=== PATIENT | male | born 1990 | race Caucasian/White ===

== ENCOUNTER 2018-06-11 11:56 | Outpatient (CLI) | payer OTHER, SELFPAY ==
--- NOTE | 2018-06-11 11:47 | DI.RAD_ITS ---
SYMPTOM/DIAGNOSIS: PLEURITIS, RT CHEST PAIN, R07.11 PA AND LATERAL CHEST: The heart is normal in size. The lungs are clear. The mediastinal structures and pleura appear intact. CONCLUSION: Normal chest.
[2018-06-11 12:28] LABS: Abs Immature Grans 0.02 k/cumm (0.0-0.09); Absolute Eosinophil Count 0.06 k/cumm (0.0-0.7); Absolute Lymphocyte Count 2.07 k/cumm (1.2-3.4); Absolute Monocyte Count 0.64 k/cumm (0.11-0.7); Absolute Neutrophil Count 5.43 k/cumm (1.2-6.7); Eosinophils % 0.7; HCT 44.3 % (40.0-50.0); HGB 14.9 g/dL (13.5-17.5); Immature Grans % 0.2; Lymphocytes % 25.2; Mean Corp. HGB Concentration 33.6 g/dL (32.0-36.0); Mean Corpuscular Hemoglobin 33.3 pg (27.0-33.0); Mean Corpuscular Volume 98.9 fL (80-95); Mean Platelet Volume 10.3 fL (8.0-11.0); Monocytes % 7.8; Neutrophils % 66.1; Platelet Count 217 x1000/uL (130-400); RBC 4.48 m/cumm (4.50-6.00); RBC Distribution Width 12.3 % (11.8-14.1); White Blood Cell Count 8.22 k/cumm (4.4-10.8)
[2018-06-11 13:06] LABS: D-Dimer 400 ng/mlFEU (<500)
[2018-06-11 13:36] LABS: ALT 25 U/L (12-78); AST 19 U/L (15-37); Alkaline Phosphatase 93 U/L (46-116); Anion Gap 9.6 mmol/L (3-11); BUN 13 mg/dL (7-18); Bilirubin, Total 1.2 mg/dL (0.2-1.0); CO2 29.4 mmol/L (21.0-32.0); CREATININE 0.83 mg/dL (0.70-1.30); Calcium 9.8 mg/dL (8.5-10.1); Chloride 100 mmol/L (98-107); Glucose 85 mg/dL (70-100); Potassium 4.6 mmol/L (3.5-5.1); Sodium 139 mmol/L (136-145); Total Protein 7.3 g/dL (6.4-8.2)
== END 2018-06-11 12:16 ==
PROVIDERS: PCP Internal Medicine; Visit Provider Internal Medicine
DX: R06.02 Shortness of breath (principal); R07.89 Other chest pain; R09.1 Pleurisy
CPT/HCPCS: 36415; 80053; 71046; 85025; 85379

== ENCOUNTER 2019-01-19 15:17 | Outpatient (CLI) | payer OTHER, SELFPAY ==
[2019-01-21 10:51] LABS: Lyme Ab w Rflx to Lyme Confirm Negative
== END 2019-01-19 15:37 ==
PROVIDERS: PCP Internal Medicine; Visit Provider Family Medicine
DX: W57.XXXA Bitten or stung by nonvenomous insect and other nonvenomous arthropods, initial encounter (principal); T14.8XXA Other injury of unspecified body region, initial encounter
CPT/HCPCS: 36415; 86618

== ENCOUNTER 2020-09-05 11:59 | Outpatient (CLI) | payer OTHER, SELFPAY ==
--- NOTE | 2020-09-05 11:45 | DI.RAD_ITS ---
EXAM: XR FOOT LT COMPLETE CLINICAL HISTORY: 100 lb slab fell on foot just prox to 1-5 MTP jts M79.672 PAIN LT FOOT. TECHNIQUE: 2D digital imaging was performed. COMPARISON: No exams were available for comparison FINDINGS: BONES: No acute fracture is present. No bony destructive lesion is seen. JOINTS: No dislocation present. SOFT TISSUE: Normal. IMPRESSION: Unremarkable radiographs of the left foot. DATA REPOSITORY: RADIATION DOSE DELIVERED:
== END 2020-09-05 12:19 ==
PROVIDERS: PCP Physician Assistant; Visit Provider Nurse Practitioner Family
DX: M79.672 Pain in left foot (principal)
CPT/HCPCS: 73630

== ENCOUNTER 2021-01-29 16:37 | Outpatient (CLI) | payer OTHER, SELFPAY ==
--- NOTE | 2021-01-29 13:45 | DI.RAD_ITS ---
Exam(s) XR SHOULDER LT COMPLETE 2+V EXAM: XR SHOULDER LT COMPLETE 2+V CLINICAL HISTORY: Lt shoulder pain, M25.512, s/p fall. TECHNIQUE: 2D digital imaging was performed. COMPARISON: No exams were available for comparison FINDINGS: There is no evidence of acute fracture or dislocation or abnormal soft tissue calcifications. The hu meral head is riding slightly high in the glenoid fossa possibly significant. AC joint appears unrem arkable. No osseous lesions. IMPRESSION: No fractures but slight upriding of the humeral head within the glenoid fossa. This may be indirect evidence of rotator cuff injury. DATA REPOSITORY: RADIATION DOSE DELIVERED:
--- NOTE | 2021-01-29 13:45 | DI.RAD_ITS ---
Exam(s) XR CLAVICLE LT EXAM: XR CLAVICLE LT CLINICAL HISTORY: left clavicle pain s/p fall. TECHNIQUE: 2D digital imaging was performed. COMPARISON: No exams were available for comparison FINDINGS: There is no evidence of left clavicle fracture nor diastasis of the AC joint. IMPRESSION: No clavicle fracture seen. DATA REPOSITORY: RADIATION DOSE DELIVERED:
== END 2021-01-29 16:57 ==
PROVIDERS: PCP Physician Assistant; Visit Provider Nurse Practitioner Family
DX: M25.512 Pain in left shoulder (principal)
CPT/HCPCS: 73000; 73030

== ENCOUNTER 2021-04-19 16:12 | Outpatient (REF) | payer OTHER, SELFPAY ==
[2021-04-19 15:36] LABS: ALT 38 U/L (16-63); AST 24 U/L (15-37); Albumin 4.2 g/dL (3.4-5.0); Alkaline Phosphatase 94 U/L (46-116); Anion Gap 12.6 mmol/L (3-11); BUN 16 mg/dL (7-18); Bilirubin, Total 0.5 mg/dL (0.2-1.0); CO2 25.4 mmol/L (21.0-32.0); CREATININE 0.9 mg/dL (0.70-1.30); Calcium 9.1 mg/dL (8.5-10.1); Calculated LDL 128 mg/dL (<100); Chloride 106 mmol/L (98-107); Cholesterol 231 mg/dL (<200); Glucose 91 mg/dL (74-106); HDL Cholesterol 62 mg/dL (40-60); Potassium 4.2 mmol/L (3.5-5.1); Sodium 144 mmol/L (136-145); Total Protein 7.3 g/dL (6.4-8.2); Triglyceride 206 mg/dL (<150)
[2021-04-19 15:50] LABS: Hemoglobin A1C 5.3 % (<5.7)
== END 2021-04-19 16:13 | disposition home or self-care (01) ==
LOC: LBN 16:12
PROVIDERS: PCP Nurse Practitioner Family; Visit Provider Nurse Practitioner Family
DX: F10.20 Alcohol dependence, uncomplicated (principal); Z13.220 Encounter for screening for lipoid disorders; Z13.1 Encounter for screening for diabetes mellitus
CPT/HCPCS: 80053; 80061; 83036

== ENCOUNTER 2021-06-24 21:27 | Emergency (ER) | payer SELFPAY ==
--- NOTE | 2021-06-24 21:30 | DI.RAD_ITS ---
Exam(s) XR ANKLE LT COMPLETE EXAM: XR ANKLE LT COMPLETE CLINICAL HISTORY: left lateral ankle pain/swelling TECHNIQUE: 2D digital imaging was performed of the left ankle. Three images were obtained. AP, lat eral and oblique views were obtained. COMPARISON: No exams were available for comparison FINDINGS: BONES: No acute fracture is present. No bony destructive lesion is seen. There is a small enthesophyt e at the Achilles insertion site. There does appear to be a tiny calcaneal spur. JOINTS:The ankle mortise is normally aligned. SOFT TISSUE: Mild soft tissue swelling anterior to the ankle. IMPRESSION: No acute fracture or dislocation. DATA REPOSITORY: RADIATION DOSE DELIVERED:
[2021-06-24 21:35] VITALS: BP 144/94; PULSE 90; RESP 17; TEMP 36.6; O2SAT 98
--- NOTE | 2021-06-24 21:35 | W.ED.GENAD ---
Discharge Plan Disposition Patient Disposition: HOME Condition: Good Discharge Details Clinical Impression: Left ankle sprain Primary Care Provider: Axel Ku ED Provider: Johann Lackey Home Meds and New Rx's Prescriptions: Continued ibuprofen 600 mg tablet 600 mg PO QID Qty: 40 RF: 0 naproxen sodium [Aleve] 220 MG capsule 220 mg PO BID PRNRF: 0 Discharge Instructions Instructions: Ankle Sprain (ED) Additional Instructions: Your x-ray results are negative for fracture. You have a notable sprain in the area. This will take a few weeks to potentially a few months to heal. Please take 1000 mg of Tylenol and 800 mg of ibuprofen every 6 hours as needed for pain. These are the maximum doses. Please keep ice on the ankle, will keep it Leonardo wrap at all times to diminish the swelling. Please use the crutches and ankle brace as needed. I would recommend nonweightbearing on your ankle for the next 3 to 5 days, with a gradual transition to use of the boot and weightbearing over the next 1 to 2 weeks as tolerated. If you notice any worsening of your symptoms, or any new symptoms such as vomiting, diarrhea, fever, chills, shortness of breath, chest pain, numbness, weakness, or fainting , please return immediately to the emergency department for reevaluation. Please follow up with your primary care provider as soon as possible for reassessment and reevaluation. As always, it was a pleasure participating in your medical care today. Referrals: Axel Ku, ECONOMIC DEVELOPMENT COORDINATOR [Primary Care Provider] - Medical Decision Making 31-year-old male no significant past medical history presents for left ankle pain. He was playing hockey when a stick got stuck between his legs, and his left leg/ankle pushed rapidly against the hockey-stick, and he had immediate pain. He has not been able to bend it or move it since it occurred. It occurred within the last few hours. Pain is on the lateral aspect of the left ankle. He denies any pain in the knee, head chest abdomen or pelvis. He denies any other injuries. He denies any numbness or tingling. He did take 600 mg of ibuprofen prior to arrival. Exam demonstrates swelling and tenderness over the lateral malleolus. Movements are intact, strength is intact. Suspect anterior talofibular ligament tear and or mild fracture of the distal fibula. We will get x-rays, give 1 g of Tylenol, apply ice, monitor closely and reassess. 9:59 PM X-ray results are negative per me read. No evidence of acute fracture. Patient will be discharged with Leonardo wrap, walking boot, and crutches. Recommend Tylenol Motrin ice at home. Discussed red flags which to return. Patient does not want a work note at this time. Patient has declined any narcotic pain medicines. I have extensively reviewed the treatment plan and discharge instructions with the patient. I have addressed all patient concerns at this time. The patient was made aware of what symptoms to monitor for that would warrant a return to the emergency department. Discussed the plan with the patient, they demonstrate verbal understanding and agreement with our assessment and plan at this time. The documentation in this chart was dictated using [employer] dictation software. Please excuse any dictation errors. FINDINGS: Bones/joints: No acute fracture or dislocation. Minimal calcaneal spur Soft tissues: Mild swelling anteriorly. IMPRESSION: No acute fracture noted Thank you for allowing us to participate in the care of your patient. Dictated and Authenticated by: Zaheer Huang MD 06/24/2021 9:55 PM Eastern Time ([place] & [place]) HPI General Date/Time Provider Initiated Documentation: 06/24/21 21:30. HPI Narrative: 31-year-old male no significant past medical history presents for left ankle pain. He was playing hockey when a stick got stuck between his legs, and his left leg/ankle pushed rapidly against the hockey-stick, and he had immediate pain. He has not been able to bend it or move it since it occurred. It occurred within the last few hours. Pain is on the lateral aspect of the left ankle. He denies any pain in the knee, head chest abdomen or pelvis. He denies any other injuries. He denies any numbness or tingling. He did take 600 mg of ibuprofen prior to arrival. Related Data Home Medications Medication Instructions Recorded Confirmed naproxen sodium [Aleve] 220 mg PO BID PRN 03/20/16 04/19/21 ibuprofen 600 mg tablet 600 mg PO QID #40 tab-cap 01/19/19 06/24/21 Allergies Allergy/AdvReac Type Severity Reaction Status Date / Time peanut AdvReac Severe GI UPSET Verified 04/19/21 08:01 Review of Systems All systems reviewed & are unremarkable except as noted in HPI and below PFSH Medical History Aortic root dilatation (10/26/12) DR. WOODARD History of back injury History of concussion History of head injury Palpitations (11/03/12) DR. WOODARD; HOLTER WITH SINGLE PAC/CARDIOLOGY CONSULT Family History Family History Diabetes Essential hypertension Myocardial infarction Social History Smoking/Tobacco Use Status: Current every day Smoking risk assessment performed?: Yes Drug use: Daily Substance use type: does not use Current gender identity: male Do you feel safe at home: Yes Do you feel safe in your relationship?: Yes Exam Narrative Exam Narrative: 1.Const: Well-nourished, Well-developed, appearing stated age 2.Eyes: PERRL, no conjunctival injection, and symmetrical lids. 3.ENT: Atraumatic external nose and ears. Moist MM. Neck: Symmetric, trachea midline, No thyromegaly. 4.CVS: +S1/S2, No murmurs or gallops. Peripheral pulses 2+ and equal in all extremities. Brisk capillary refill in all extremities. 5.RESP: Unlabored respiratory effort. Clear to auscultation bilaterally. No wheezes rales or rhonchi 6.GI: Soft, Nontender/Nondistended, No hepatosplenomegaly. No guarding or rebound. 7.MSK: No evidence of trauma to the arms chest pelvis head neck or back. Right lower extremity is unremarkable. Left lower extremity demonstrates swelling over the lateral malleolus both anteriorly inferiorly and posteriorly. Achilles tendon is intact. No tenderness over the mid or proximal tibia/fibula. No tenderness over the toes or distal aspect of the foot. Patient is able to flex and extend the toes. No tenderness over the calcaneus. Patient is able to plantar and dorsiflex the foot minimally secondary to pain, as well as invert and jonatan the foot, but all of these movements cause notable pain. Dorsalis pedis and posterior tibial pulse +2 bilaterally. Sensation intact throughout the foot. 8.Skin: Warm, Dry. No rashes or lesions. 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 Sensation grossly intact, no focal neurologic deficits. 10.Psych: (AAO) x3. Appropriate mood and affect
[2021-06-24] MEDS: Acetaminophen 500 MG TAB 1000 MG PO (21:49)
--- NOTE | 2021-06-24 21:57 | DI.VRAD_ITS ---
PROCEDURE INFORMATION: Exam: XR Left Ankle Exam date and time: 06/24/2021 9:36 PM Age: 31 years old Clinical indication: Injury or trauma; Blunt trauma; Injury date: 06/24/21; Injury details: Fall playing hockey, left lat ankle pain and swelling TECHNIQUE: Imaging protocol: XR Left ankle. Views: 3 or more views. COMPARISON: CR XR FOOT LT COMPLETE 09/05/2020 12:05 PM FINDINGS: Bones/joints: No acute fracture or dislocation. Minimal calcaneal spur Soft tissues: Mild swelling anteriorly. IMPRESSION: No acute fracture noted Dictated and Authenticated by: Zaheer Huang MD. Ordering:YAHIR Wills MD
== END 2021-06-24 22:07 | disposition home or self-care (01) ==
PROVIDERS: Emergency Provider Student in an Organized Health Care Education/Training Program; PCP Nurse Practitioner Family
DX: S93.492A Sprain of other ligament of left ankle, initial encounter (principal); W01.0XXA Fall on same level from slipping, tripping and stumbling without subsequent striking against object, initial encounter; Y93.22 Activity, ice hockey
CPT/HCPCS: 99283; 73610